=== PATIENT | male | born 1955 | race Caucasian/White ===

== ENCOUNTER → 2021-01-17 | Outpatient (CLI) | payer MEDICARE, OTHER ==
[~2021-01-17] MED LIST: ASPIRIN EC81 MG PO; COZAAR100 MG PO; LOPRESSOR 50 MG50 MG PO; OMEPRAZOLE20 MG PO
== END ==
LOC: ECHO 11:00
DX: Z48.812 Encounter for surgical aftercare following surgery on the circulatory system (principal); Z95.3 Presence of xenogenic heart valve; I08.1 Rheumatic disorders of both mitral and tricuspid valves
CPT/HCPCS: ECHO; 93306

== ENCOUNTER 2021-09-05 14:24 | Emergency (ER) | payer MEDICARE, OTHER ==
[~2021-09-05] VITALS: Ht 180.3 cm; Wt 106.6 kg
== END 2021-09-05 17:47 | disposition home or self-care (01) ==
LOC: ER1 14:24
DX: U07.1 COVID-19 (principal); Z23 Encounter for immunization; I10 Essential (primary) hypertension; I25.10 Atherosclerotic heart disease of native coronary artery without angina pectoris; Z95.1 Presence of aortocoronary bypass graft
CPT/HCPCS: 99283; M0245